=== PATIENT | female | born 1990 | race Caucasian/White ===

== ENCOUNTER 2016-05-23 04:02 | Emergency (ER) | payer OTHER ==
[~2016-05-23] VITALS: Ht 160 cm; Wt 70.7 kg
[~2016-05-23 04:02] MED LIST: DOCU-30 PO; IBUP-1222 PO; OXYC-302 PO; prenatal gummies PO
[2016-05-23] MEDS ORDERED: SODIUM CHLORIDE 0.9% 1,000 ML IV ONE (04:50)
[2016-05-23] MEDS ORDERED: ONDANSETRON 2MG/ML, 2ML IVPush ONE (05:00)
[2016-05-23] MEDS ORDERED: FAMOTIDINE 20 MG/2 ML IVP ONE (05:00)
[2016-05-23] MEDS ORDERED: SODIUM CHLORIDE 0.9% 1,000ML IVBOLUS ONE (05:00)
[2016-05-23] MEDS ORDERED: HYDROmorphone 1 MG/ML, 1ML IVPush PRN (05:00)
[2016-05-23] MEDS ORDERED: HYDROmorphone 1 MG/ML, 1ML ONE (05:02)
[2016-05-23] MEDS ORDERED: ONDANSETRON 2MG/ML, 2ML ONE (05:02)
[2016-05-23] MEDS ORDERED: FAMOTIDINE 20 MG/2 ML ONE (05:02)
[2016-05-23 05:38] LABS: HEMOGLOBIN 14.1 g/dL (11.7-16.4)
[2016-05-23 05:58] LABS: ASPARTATE AMINO TRANSFERASE 24 U/L (15-37); BLOOD UREA NITROGEN 14 mg/dL (7-18)
[2016-05-23] MEDS ORDERED: MAALOX/HYOSCYAMINE/LIDOCAINE 45 ML BOTTLE PO ONE (08:30)
[2016-05-23] MEDS ORDERED: MAALOX/HYOSCYAMINE/LIDOCAINE 45 ML BOTTLE ONE (09:22)
[2016-05-23 09:31] VITALS: BP 105/75
== END 2016-05-23 09:33 | disposition home or self-care (01) ==
LOC: ED 05:49
DX: K29.00 Acute gastritis without bleeding (principal); F12.10 Cannabis abuse, uncomplicated
CPT/HCPCS: 36415; 74020; 76700; 80053; 81001; 83690; 84703; 85025; 87086; 96361; 96374; 96375; 99285; J1170; J2405; J7030; 96365; 96366; S0028

== ENCOUNTER 2016-08-08 14:39 | Emergency (ER) | payer OTHER ==
[~2016-08-08] VITALS: Ht 160 cm; Wt 71.4 kg
[2016-08-08] MEDS ORDERED: SODIUM CHLORIDE FLUSH 10ML SYR IVF ONE (15:30)
[2016-08-08] MEDS ORDERED: SODIUM CHLORIDE 0.9% 1,000ML IVBOLUS ONE ×2 (15:30→16:00)
[2016-08-08] MEDS ORDERED: ONDANSETRON 2MG/ML, 2ML IVPush ONE (15:30)
[2016-08-08] MEDS ORDERED: MORPHINE SULFATE 4 MG/ML, 1ML ONE (15:38)
[2016-08-08] MEDS ORDERED: ONDANSETRON 2MG/ML, 2ML ONE (15:39)
[2016-08-08] MEDS ORDERED: ETON1VAG VG (16:00)
[2016-08-08] MEDS ORDERED: morphine SULFATE 10 MG/ML, 1ML IVPush ONE (16:00)
[2016-08-08] MEDS ORDERED: FAMO-79 PO (16:00)
[2016-08-08] MEDS ORDERED: DICYCLOMINE 20 MG TABLET PO ONE (16:00)
[2016-08-08 16:10] LABS: PATH.CAST-FLAG NOT PRESENT; SPERM-FLAG NOT PRESENT; SRC-FLAG NOT PRESENT; XTAL-FLAG NOT PRESENT; YLC-FLAG NOT PRESENT
[2016-08-08 16:17] LABS: ASPARTATE AMINO TRANSFERASE 20 U/L (15-37); BLOOD UREA NITROGEN 6 mg/dL (7-18)
[2016-08-08 17:42] VITALS: BP 119/84
== END 2016-08-08 17:44 | disposition home or self-care (01) ==
LOC: ED 17:00
DX: K60.2 Anal fissure, unspecified (principal); R11.2 Nausea with vomiting, unspecified; E87.5 Hyperkalemia
CPT/HCPCS: 36415; 80053; 81001; 83690; 84703; 85025; 87086; 93005; 96361; 96374; 96375; 99285; J2270; J2405; J7030

== ENCOUNTER 2017-03-27 05:40 | Emergency (ER) | payer OTHER ==
[~2017-03-27] VITALS: Ht 157.5 cm; Wt 75.0 kg
[~2017-03-27 05:40] MED LIST changes: +DOCU-131 PO; -DOCU-30 PO; +ETON1VAG VG; +FAMO-79 PO
[2017-03-27] MEDS ORDERED: SODIUM CHLORIDE 0.9% 1,000 ML IV ONE (06:02)
[2017-03-27] MEDS ORDERED: MORPHINE SULFATE 4 MG/ML, 1ML ONE (06:15)
[2017-03-27] MEDS ORDERED: FAMOTIDINE 20 MG/2 ML ONE (06:15)
[2017-03-27] MEDS ORDERED: ONDANSETRON 2MG/ML, 2ML ONE (06:15)
[2017-03-27 06:18] LABS: BASOPHILS # (AUTO) 0.02 x10^3/uL (0-0.1); BASOPHILS % (AUTO) 0 % (0-1); EOSINOPHILS # (AUTO) 0.04 x10^3/uL (0-0.4); EOSINOPHILS % (AUTO) 1 % (1-7); LYMPHOCYTES # (AUTO) 0.52 x10^3/uL (1-3.4); LYMPHOCYTES % (AUTO) 7 % (22-44); MD NO; MEAN CORPUSCULAR HEMOGLOBIN 31.1 pg (27.0-34.8); MEAN CORPUSCULAR HGB CONC 33.9 g/dL (32.4-35.8); MEAN CORPUSCULAR VOLUME 91.9 fL (80-100); MEAN PLATELET VOLUME 9.9 fL (7.4-10.4); MONOCYTES # (AUTO) 0.43 x10^3/uL (0.2-0.8); MONOCYTES % (AUTO) 6 % (2-9); NEUTROPHILS # (AUTO) 6.27 x10^3/uL (1.8-6.8); NEUTROPHILS % (AUTO) 86 % (42-75); PLATELET COUNT 185 x10^3/uL (130-400); RED BLOOD COUNT 4.54 x10^6/uL (3.82-5.3); RED CELL DISTRIBUTION WIDTH 13.4 % (9.6-15.2)
[2017-03-27 06:27] LABS: ALANINE AMINOTRANSFERASE 29 U/L (12-78); ALBUMIN 3.9 g/dL (3.4-5.0); ANION GAP 11 mmol/L (5-15); CALCIUM 8.8 mg/dL (8.5-10.1); CHLORIDE 106 mmol/L (98-107); CREATININE 0.77 mg/dL (0.55-1.02)
[2017-03-27] MEDS ORDERED: FAMOTIDINE 20 MG/2 ML IVP ONE (06:30)
[2017-03-27] MEDS ORDERED: ONDANSETRON 2MG/ML, 2ML IVPush ONE (06:30)
[2017-03-27] MEDS ORDERED: MORPHINE SULFATE 4 MG/ML, 1ML IVPush PRN (06:30)
[2017-03-27] MEDS ORDERED: SODIUM CHLORIDE 0.9% 1,000ML IVBOLUS ONE (06:30)
[2017-03-27 06:32] LABS: ALKALINE PHOSPHATASE 58 U/L (45-117); TOTAL PROTEIN 8.5 g/dL (6.4-8.2)
[2017-03-27] MEDS ORDERED: MAALOX/HYOSCYAMINE/LIDOCAINE 45 ML BTL PO ONE (07:30)
[2017-03-27] MEDS ORDERED: MAALOX/HYOSCYAMINE/LIDOCAINE 45 ML BTL ONE ×2 (07:37→07:49)
[2017-03-27 08:12] VITALS: BP 123/85
== END 2017-03-27 08:18 | disposition home or self-care (01) ==
LOC: ED 07:33
DX: K29.00 Acute gastritis without bleeding (principal)
CPT/HCPCS: 36415; 76700; 80053; 83690; 84703; 85025; 93005; 96361; 96374; 96375; 99285; J2405; J7030; S0028